=== PATIENT | male | born 1975 | race Hispanic/Latino ===

== ENCOUNTER 2018-11-07 06:33 | Day surgery (SDC) | payer OTHER ==
[2018-11-06 12:53] LABS: BASOPHILS % (AUTO) 0.8 % (0.0-5.0); EOSINOPHILS % (AUTO) 1.5 % (0.0-8.0); HEMATOCRIT 43.3 % (42-54); LYMPHOCYTES % (AUTO) 24.2 % (21.0-51.0); MEAN CORPUSCULAR HEMOGLOBIN 28.2 pg (27.0-33.0); MEAN CORPUSCULAR HGB CONC 34.1 g/dL (32.0-36.0); MEAN CORPUSCULAR VOLUME 82.7 fL (79-99); NEUTROPHILS % (AUTO) 66.5 % (40.0-77.0); NUCLEATED RED BLOOD CELLS 0.1 % (0.0-0.19); PLATELET COUNT (AUTO) 174 K/uL (130-400); RED BLOOD CELL COUNT(AUTO) 5.24 MIL/uL (4.50-6.20); RED CELL DISTRIBUTION WIDTH 13.4 % (11.0-15.5)
[2018-11-06 13:00] LABS: CREATININE 1.2 mg/dL (0.5-1.5); POTASSIUM 4.6 mmol/L (3.5-5.1)
[2018-11-06 13:09] VITALS: BP 141/90
--- NOTE | 2018-11-06 17:14 | NUR ---
REPORTED ABNORMAL BMP AND WBC OF 11.[address] HARMON NO NEW ORDERS, OK TO PROCEED
[~2018-11-07] VITALS: Ht 177.8 cm; Wt 118.9 kg
[2018-11-07] VITALS (13 sets, daily range): BP systolic 106–134; BP diastolic 62–81
[~2018-11-07 06:33] MED LIST: ATOR20TA65 PO; CEFAZOLIN SODIUM 1 GM VIAL IVP SCH; GLIP10TA9 PO; LISI40TA4 PO; METF-446 PO
--- NOTE | 2018-11-07 07:10 | NUR ---
POTENTIAL FOR INFECTION: SHAVED LEFT KNEE / LEG PER JENN KNOWLES, FOLLOWED BY WIPING WITH IWONA: 2% CHLORHEXIDINE GLUCONATE CLOTH PATIENTS PRE-OP SKIN PREP.
[2018-11-07] MEDS ORDERED: SODIUM CHLORIDE 0.9% 1000ML 1,000 ML IV ONE (07:39)
[2018-11-07] MEDS ORDERED: VANCOMYCIN 1.75 GM in SODIUM CHLORIDE 0.9% 250 ML IV SCH (08:15)
[2018-11-07] MEDS ORDERED: MIDAZOLAM HCL 1 MG/ML 2ML VIAL ONE ×2 (09:08→09:12)
[2018-11-07] MEDS ORDERED: DEXAMETHASONE SOD PHOSPHATE 10MG/ML 1ML VIAL ONE (09:12)
[2018-11-07] MEDS ORDERED: GLYCOPYRROLATE 1 MG/5 ML SYRINGE ONE (09:12)
[2018-11-07] MEDS ORDERED: PROPOFOL 10 MG/ML 20ML VIAL IV ONE (09:12)
[2018-11-07] MEDS ORDERED: SUCCINYLCHOLINE 200MG/10ML SYR ONE (09:12)
[2018-11-07] MEDS ORDERED: NEOSTIGMINE 5MG/5ML SYR IV ONE (09:12)
[2018-11-07] MEDS ORDERED: LIDOCAINE PF 2% 5ML ABBOJECT ONE (09:12)
[2018-11-07] MEDS ORDERED: ONDANSETRON HCL 4 MG/2 ML VIAL ONE (09:12)
[2018-11-07] MEDS ORDERED: ROCURONIUM 10MG/1ML SYR 10 MG/ML ML ONE (09:13)
[2018-11-07] MEDS ORDERED: FENTANYL CITRATE PF 50 MCG/1 ML 2ML VIAL ONE ×2 (09:15→10:41)
[2018-11-07] MEDS ORDERED: TYL3 PO (10:49)
[2018-11-07] MEDS ORDERED: CEPH500B PO (10:49)
[2018-11-07] MEDS ORDERED: KETOROLAC TROMETHAMINE 30MG/ML ONE (10:55)
[2018-11-07] MEDS ORDERED: MEPERIDINE-PF 25 MG/ML SYG ONE (10:55)
--- NOTE | 2018-11-07 11:45 | NUR ---
RECEIVE PT RECEIVED FROM PACU VIA STRETCHER AWAKE ALERT ORIENTED X3. PT STABLE. NO COMPLAINTS MADE. DRESSING TO LEFT KNEE DRY AND INTACT, NO OOZING NO SWELLING NOTED. ICE PACK APPLIED TO SITE. CALL POWER WITHIN REACH, WILL CALL PARENTS TO COME IN TO ROOM.
--- NOTE | 2018-11-07 12:30 | NUR ---
DISCHARGE PT DISCHARGED VIA WHEELCHAIR WITH PARENTS.PT STABLE. PT WAS ABLE TO TAKE FEW STEPS WITHOUT ANY PROBLEMS WITH THE USE OF CRUTCHES, WEIGHT BEARING TOLERATED TO LEFT LEG. DRESSING TO LEFT KNEE REMAINS DRY AND INTACT, NO OOZING NO SWELLING NOTED. DISCHARGE INSTRUCTIONS GIVEN TO MOTHER AND PT, VERBALIZED UNDERSTANDING.
== END 2018-11-07 12:30 | disposition home or self-care (01) ==
LOC: DAH 06:33
PROVIDERS: ATTEND Orthopaedic Surgery
DX: M23.322 Other meniscus derangements, posterior horn of medial meniscus, left knee (principal); M22.42 Chondromalacia patellae, left knee; M23.8X2 Other internal derangements of left knee; G89.29 Other chronic pain; K44.9 Diaphragmatic hernia without obstruction or gangrene; M67.52 Plica syndrome, left knee; K21.9 Gastro-esophageal reflux disease without esophagitis; E66.01 Morbid (severe) obesity due to excess calories; E11.9 Type 2 diabetes mellitus without complications; F43.10 Post-traumatic stress disorder, unspecified; F32.9 Major depressive disorder, single episode, unspecified; Z79.84 Long term (current) use of oral hypoglycemic drugs; Z79.899 Other long term (current) drug therapy; Z98.890 Other specified postprocedural states; Z68.38 Body mass index [BMI] 38.0-38.9, adult
CPT/HCPCS: 29881; 36415; 80048; 82948 ×2; 85025; 88307; 88311; 96365; 96366; A4606; A4649 ×2; A4930; A6223; J0330; J1100; J1885; J2001; J2175; J2250 ×2; J2405; J2704; J2710; J3010 ×2; J3370; J3490; J7030 ×2